=== PATIENT | female | born 2000 | race African-American/Black ===

== ENCOUNTER 2023-08-25 02:55 | Emergency (ER) | payer SELFPAY ==
[~2023-08-25] VITALS: Ht 144.8 cm; Wt 64.0 kg
[2023-08-25 03:13] VITALS: BP 106/72; PULSE 95; RESP 18; O2SAT 98
[2023-08-25 05:27] VITALS: TEMP 97.8
[2023-08-25] MEDS ORDERED: ACETAMINOPHEN 325MG TABLET PO STA (05:27)
[2023-08-25] MEDS ORDERED: IBUP-2029 MT (06:33)
== END 2023-08-25 06:52 | disposition home or self-care (01) ==
LOC: ER 02:55
DX: S09.90XA Unspecified injury of head, initial encounter (principal); X58.XXXA Exposure to other specified factors, initial encounter; Y93.89 Activity, other specified; Y92.89 Other specified places as the place of occurrence of the external cause; Y99.8 Other external cause status
CPT/HCPCS: 99284